=== PATIENT | male | born 1950 | race Asian ===

== ENCOUNTER → 2018-05-09 | Outpatient (CLI) | payer BC | END | disposition home or self-care (01) | LOC: RADPV 13:34 | PROVIDERS: ATTEND Family Medicine | DX: M25.721 Osteophyte, right elbow (principal) ==

== ENCOUNTER → 2020-12-15 | Outpatient (CLI) | payer BC | END | disposition home or self-care (01) | LOC: RADPV 09:57 | PROVIDERS: ATTEND Family Medicine | DX: R05 Cough (principal) | CPT/HCPCS: 71046 ==